=== PATIENT | male | born 1950 | race Hispanic/Latino ===

== ENCOUNTER 2018-05-30 16:34 | Emergency (ER) | payer BC ==
[2018-05-30 17:12] VITALS: BP 169/96; PULSE 85; RESP 20; TEMP 98.9; O2SAT 98
--- NOTE | 2018-05-30 17:26 | C.PDOC ---
History Of Present Illness BECCA JENSEN YESTERDAY FOR L FOREARM/ELBOW PAIN TODAY. ACCID SLIPPED ON WET STAIRS. LIMITED MOVEMENT L FOREARM DUE TO PAIN, +SWELLING. R HANDED. DENIES OTHER ASSOC SX EXAM MILD DIST NONTOXIC HEENT ATRAUM EXT LUE: +SWELL MID/PROX L FOREARM; LIMITED SUPINATION DUE TO PAIN; FULL FLEX/ EXT WO DIFF. SKIN INTACT CAP REFILL INTACT NEURO NO FOCAL DEF REMAINDER NEG Time Seen by Provider: 05/30/18 17:20 Chief Complaint (Nursing): Upper Extremity Problem/Injury History Per: Patient History/Exam Limitations: no limitations Onset/Duration Of Symptoms: Days Current Symptoms Are (Timing): Still Present Severity: Moderate Past Medical History Reviewed: Historical Data, Nursing Documentation, Vital Signs Vital Signs: Last Vital Signs Temp 98.9 F 05/30/18 17:10 Pulse 85 05/30/18 17:10 Resp 20 05/30/18 17:10 BP 169/96 H 05/30/18 17:10 Pulse Ox 98 05/30/18 18:32 - Medical History PMH: HTN Other Surgeries: Hx of surgeries Family History: States: No Known Family Hx - Social History Hx Alcohol Use: No Hx Substance Use: No - Immunization History Hx Tetanus Toxoid Vaccination: No Hx Influenza Vaccination: No Hx Pneumococcal Vaccination: No Review Of Systems Except As Marked, All Systems Reviewed And Found Negative. Musculoskeletal: Positive for: Other (left forearm/elbow pain) Neurological: Negative for: Weakness, Numbness Physical Exam - Physical Exam Appears: Non-toxic, Other (mild distress) Skin: Normal Color, Warm, Dry, Other (intact) Head: Atraumatic, Normacephalic Eye(s): bilateral: Normal Inspection Extremity: No Normal ROM (LUE:limited supination in due to pain, full flex/ ext wo difficulty), Capillary Refill (< 2 seconds), Swelling (LUE: swelling to mid/ prox left forearm) Neurological/Psych: Oriented x3, Normal Speech, Other (no focal deficits) ED Course And Treatment O2 Sat by Pulse Oximetry: 98 (RA) Pulse Ox Interpretation: Normal - Other Rad X-Ray- Left Elbow X-Ray: Viewed By Me, Read By Radiologist Interpretation: IMPRESSION: Age indeterminate radial head fracture. Findings are prior trauma primarily about the radial head and olecranon. X-Ray-Left Forearm X-Ray: Viewed By Me, Read By Radiologist Interpretation: OTHER FINDINGS: Evidence of old trauma of about the left elbow. Multiple small bony fragments in well corticated osseous excrescence is identified. IMPRESSION: No acute findings related to/accounting for the clinical presentation. X-Ray-Left Wrist X-Ray: Viewed By Me, Read By Radiologist Interpretation: IMPRESSION: No acute findings related to/accounting for the clinical presentation. Orthopedic Time Performed: 18:22 Time Out: Side verified, Site verified Procedure: Splint Type: Long Other:: POSTERIOR ELBOW Location: Left Consent obtained: Verbal Performed by: Attending Physician Diagnosis: Fracture Joints: Other (ELBOW) Capillary refill: Normal Distal Sensation: Normal Distal Motor Function: Normal Capillary Refill: Normal Compartment: Normal Distal Sensation: Normal Distal Motor Function: Normal Patient tolerated procedure: Well Medical Decision Making Medical Decision Making: Plan: --X-Ray- Left Elbow --X- Ray- Left Forearm --X-Ray - Left Wrist --Motrin PO Disposition Counseled Patient/Family Regarding: Studies Performed, Diagnosis, Need For Followup, Rx Given - Disposition Referrals: Raheem oLzoya MD [Staff Provider] - [facility] [Outside] Disposition: HOME/ ROUTINE Disposition Time: 18:24 Condition: IMPROVED Prescriptions: Acetaminophen with Codeine [Tylenol with Codeine No. 3 300 mg-30 mg] 1 tab PO Q6 PRN #12 tab PRN Reason: Pain, Moderate (4-7) Ibuprofen [Motrin] 600 mg PO Q6 #30 tab Instructions: Elbow Fracture (DC) Forms: [facility] (Pashto), Work Excuse - Clinical Impression Clinical Impression: Radial head fracture, closed - Scribe Statement The provider has reviewed the documentation as recorded by the Drake Carranza Provider Attestation: All medical record entries made by the Scribe were at my direction and personally dictated by me. I have reviewed the chart and agree that the record accurately reflects my personal performance of the history, physical exam, medical decision making, and the department course for this patient. I have also personally directed, reviewed, and agree with the discharge instructions and disposition.
--- NOTE | 2018-05-30 18:08 | RAD ---
Date of service: 05/30/2018 PROCEDURE: Radiographs of the Left Forearm HISTORY: TRAUMA COMPARISON: None available. TECHNIQUE: Frontal and lateral views obtained. FINDINGS: BONES: No fracture or destructive lesion. JOINT SPACES: Unremarkable. OTHER FINDINGS: Evidence of old trauma of about the left elbow. Multiple small bony fragments in well corticated osseous excrescence is identified. IMPRESSION: No acute findings related to/accounting for the clinical presentation. Concordant results with the preliminary interpretation rendered by the emergency department physician procedure.
--- NOTE | 2018-05-30 18:10 | RAD ---
Date of service: 05/30/2018 PROCEDURE: Left Wrist Radiographs. HISTORY: TRAUMA COMPARISON: None. FINDINGS: BONES: Normal. No fracture. JOINTS: Normal. No dislocation. SOFT TISSUES: Normal. OTHER FINDINGS: None. IMPRESSION: No acute findings related to/accounting for the clinical presentation. Concordant results with the preliminary interpretation rendered by the emergency department physician procedure.
--- NOTE | 2018-05-30 18:10 | RAD ---
Date of service: 05/30/2018 PROCEDURE: Radiographs of the left elbow. HISTORY: TRAUMA COMPARISON: No prior. FINDINGS: BONES: Evidence of old trauma. Superimposed acute trauma is difficult to assess. Findings however suggests radial head fracture. JOINTS: Degenerative, osteoarthritic changes. Evidence of old trauma multiple well corticated osseous excrescence is within the joint space. SOFT TISSUES: Normal. JOINT EFFUSION: None. OTHER FINDINGS: None IMPRESSION: Age indeterminate radial head fracture. Findings are prior trauma primarily about the radial head and olecranon. Concordant results with the preliminary interpretation rendered by the emergency department physician procedure.
== END 2018-05-30 18:35 | disposition home or self-care (01) ==
LOC: C.ER 16:34
DX: S52.122A Displaced fracture of head of left radius, initial encounter for closed fracture (principal); W10.9XXA Fall (on) (from) unspecified stairs and steps, initial encounter; Y92.9 Unspecified place or not applicable

== ENCOUNTER 2019-01-26 11:21 | Outpatient (CLI) | payer BC | END 2019-01-26 11:22 | disposition home or self-care (01) | LOC: C.PAT 11:21 | DX: H66.13 Chronic tubotympanic suppurative otitis media, bilateral (principal) ==

== ENCOUNTER 2019-02-07 06:04 | Day surgery (SDC) | payer BC ==
[2019-01-25 09:45] VITALS: BMI 29.8
[2019-02-07] MEDS ORDERED: Propofol 10 mg/ml Inj (20 ML) ONE (07:22)
[2019-02-07] MEDS ORDERED: Lactated Ringer's 1,000 ML IV SCH (08:15)
[2019-02-07 09:30] VITALS: O2SAT 97
[2019-02-07 10:04] VITALS: BP 139/82; PULSE 78; RESP 18; TEMP 97.8
--- NOTE | 2019-02-07 19:00 | OP ---
PROCEDURE DATE: 02/07/2019 PREOPERATIVE DIAGNOSIS: Right chronic otitis media. POSTOPERATIVE DIAGNOSIS: Right chronic otitis media. PROCEDURE: Right myringotomy tube. SIGNIFICANT FINDINGS: Fluid noted behind the right TM. DESCRIPTION OF PROCEDURE: The patient was brought into the room, placed in supine position. Anesthesia was initiated through LMA. The patient was draped in the usual manner. The head was turned. The right ear was brought into view using operative microscope and ear speculum. Radial incision was made in the anterior-inferior quadrant of the eardrum. Fluid was noted behind the TM and suctioned out. Tube was placed. Floxin was placed. The patient was taken off anesthesia and taken to recovery room in stable manner. Vince Romo MD
== END 2019-02-07 10:01 | disposition home or self-care (01) ==
LOC: C.SDS 06:04
PROVIDERS: ATTEND Otolaryngology
DX: H66.91 Otitis media, unspecified, right ear (principal); I10 Essential (primary) hypertension; Z98.890 Other specified postprocedural states; Z98.42 Cataract extraction status, left eye; Z98.41 Cataract extraction status, right eye
CPT/HCPCS: 69436; J2001; J2704; J3010; J7040